=== PATIENT | female | born 1990 | race American Indian/Alaskan Native ===

== ENCOUNTER 2018-07-22 18:34 | Inpatient (IN) | payer OTHER, MEDICAID ==
[2018-07-22] MEDS ORDERED: XYLOCAINE 2% INFILTRATI ONE (20:52)
[2018-07-22] MEDS ORDERED: ZOFRAN IV PRN (20:52)
[2018-07-22] MEDS ORDERED: BRETHINE IVP PRN (20:52)
[2018-07-22] MEDS ORDERED: SUBLIMAZE IV PRN (20:52)
[2018-07-22] MEDS ORDERED: BRETHINE SUB-Q PRN (20:52)
[2018-07-22] MEDS ORDERED: MINERAL OIL PO PRN (20:52)
[2018-07-22] MEDS ORDERED: PITOCin/NS 20 UNIT/1000ML DRIP 20 UNITS/1,000 ML BAG IV SCH (21:00)
[2018-07-22] MEDS ORDERED: LACTATED RINGERS 1,000 ML IV SCH (21:00)
--- NOTE | 2018-07-22 21:05 | History and Physical Report ---
History of Present Illness Date of examination: 07/22/18 Chief complaint: regular painful contractions beginning @ 1300 today History of present illness: EDC Calculations by LMP: 07/21/2018 Past History : 1 Past Medical History: Reviewed history from 01/03/2017 and no changes required: Negative Past Medical History Past Surgical History: Reviewed history from 01/03/2017 and no changes required: Negative Past Surgical History Past Medical History Abnormal PAP: negative MAYANK Exposure: negative Infertility: negative Uterine Anomaly: negative Uterine Surgery (not C/S): negative Other Gynecologic Problems: negative Medical History Comments: negatinve Social Hx: Patient is single same partner x 10 years. debut age 15, x 5 Smoking History: Patient has never smoked. Infection History Hx of STD: chlamydia Partner hx. of genital herpes: no Rash, Viral, or Febrile illness since last LMP? no Varicella/Chicken Pox Status: Previous Disease Genetic History Congenital Heart Defect: Mom: no Dad: no Tj Disease: Mom: no Dad: no Thalassemia Mom: no Dad: no Neural Tube Defect Mom: no Dad: no Down's Syndrome Mom: no Dad: no Duncan-Sachs Mom: no Dad: no Sickle Cell Disease/Trait Mom: no Dad: no Hemophilia Mom: no Dad: no Muscular Dystrophy Mom: no Dad: no Cystic Fibrosis Mom: no Dad: no Ion Chorea Mom: no Dad: no Mental Retardation Mom: no Dad: no Fragile X Mom: no Dad: no Other Genetic/Chromosomal Disorder Mom: no Dad: no Child w/other defect Mom: no Dad: no Enviromental Exposures Xray Exposure: no Medication, drug, or alcohol use since LMP: no Chemical/Other Exposure: no Exposure to Cat Liter: no Hx of Parvovirus (Fifth Disease): no Occupational Exposure to Children: none Active Medications (reviewed today): None Current Allergies (reviewed today): No known allergies Past History Past Medical History: other (see HPI) Past Surgical History: other (see HPI) RACE STARTER History: other (see HPI) - Obstetrical History Expected Date of Delivery: 07/21/18 Actual Gestation: 40 Week(s) 2 Day(s) : 1 Para: 0 Hx # Term Pregnancies: 0 Number of Pregnancies: 0 Spontaneous Abortions: 0 Induced : 0 Number of Living Children: 0 Medications and Allergies Allergies Allergy/AdvReac Type Severity Reaction Status Date / Time No Known Allergies Allergy Verified 07/22/18 19:00 Review of Systems All systems: negative - Vital Signs Vital signs: Vital Signs Pulse Pulse Ox 87 96 07/22/18 18:57 07/22/18 18:57 Temp Pulse Resp BP Pulse Ox 98.6 F 76 20 127/85 98 07/22/18 19:15 07/22/18 20:41 07/22/18 19:15 07/22/18 20:41 07/22/18 19:22 - Physical Exam Breasts: Positive: normal Cardiovascular: Regular rate Lungs: Positive: Clear to auscultation, Normal air movement Abdomen: Positive: normal appearance, soft Genitourinary (Female): Positive: normal external genitalia (no evidence of HSV lesion, pt denies s/s outbreak), normal perenium Vulva: both: normal Vagina: Positive: normal moisture Uterus: Positive: normal size, normal contour Anus/Rectum: Positive: normal perianal skin Extremities: Positive: normal - Obstetrical FHR: auscultation normal Uterine Contraction Monitor Mode: External Cervical Dilatation: 3.5 Uterine Contraction Pattern: Regular Uterine Tone Measurement Phase: Contraction Uterine Contraction Intensity: Moderate Results Result Diagrams: 07/22/18 23:55 All other labs normal. Assessment and Plan 28y/o admitted for active labor. Pt changed her cervix from 2.5/90/-1 to 3.5/90/-1 after 1 hour of ambulating by same rn. GBS Neg. no evidence of HSV outbreak. Pt denies need for epidural at this time. Admission orders in EMR. Pelvis feels adequate for size of baby at this time. Dr. Lezama aware of admission. - Patient Problems (1) HSV-2 (herpes simplex virus 2) infection Current Visit: Yes Status: Acute (2) Active labor at term Current Visit: Yes Status: Acute (3) 40 weeks gestation of Current Visit: Yes Status: Acute
[2018-07-23 00:10] LABS: Hematocrit 40.4 % (30.3-42.9); Mean Corpuscular HGB Conc 35 % (30-34); Mean Corpuscular Volume 95 fl (79-97); Platelet Count 145 K/mm3 (140-440); Red Blood Count 4.25 M/mm3 (3.65-5.03); Red Cell Distribution Width 12.6 % (13.2-15.2)
--- NOTE | 2018-07-23 02:15 | Progress Note ---
Assessment and Plan Pt bolusing for epidural. AROM BBOW - moderate amount of clear fluid. Anticipate . - Patient Problems (1) HSV-2 (herpes simplex virus 2) infection Current Visit: Yes Status: Acute (2) Active labor at term Current Visit: Yes Status: Acute (3) 40 weeks gestation of Current Visit: Yes Status: Acute Subjective - Subjective Date of service: 07/23/18 Principal diagnosis: IUP @ 40+2, laboring Interval history: EDC Calculations by LMP: 07/21/2018 Past History : 1 Past Medical History: Reviewed history from 01/03/2017 and no changes required: Negative Past Medical History Past Surgical History: Reviewed history from 01/03/2017 and no changes required: Negative Past Surgical History Past Medical History Abnormal PAP: negative MAYANK Exposure: negative Infertility: negative Uterine Anomaly: negative Uterine Surgery (not C/S): negative Other Gynecologic Problems: negative Medical History Comments: negatinve Social Hx: Patient is single same partner x 10 years. debut age 15, x 5 Smoking History: Patient has never smoked. Infection History Hx of STD: chlamydia Partner hx. of genital herpes: no Rash, Viral, or Febrile illness since last LMP? no Varicella/Chicken Pox Status: Previous Disease Genetic History Congenital Heart Defect: Mom: no Dad: no Tj Disease: Mom: no Dad: no Thalassemia Mom: no Dad: no Neural Tube Defect Mom: no Dad: no Down's Syndrome Mom: no Dad: no Duncan-Sachs Mom: no Dad: no Sickle Cell Disease/Trait Mom: no Dad: no Hemophilia Mom: no Dad: no Muscular Dystrophy Mom: no Dad: no Cystic Fibrosis Mom: no Dad: no Ion Chorea Mom: no Dad: no Mental Retardation Mom: no Dad: no Fragile X Mom: no Dad: no Other Genetic/Chromosomal Disorder Mom: no Dad: no Child w/other defect Mom: no Dad: no Enviromental Exposures Xray Exposure: no Medication, drug, or alcohol use since LMP: no Chemical/Other Exposure: no Exposure to Cat Liter: no Hx of Parvovirus (Fifth Disease): no Occupational Exposure to Children: none Active Medications (reviewed today): None Current Allergies (reviewed today): No known allergies Patient reports: contractions Objective - Vital Signs Vital Signs: Vital Signs - 12hr 07/22/18 07/22/18 07/22/18 18:57 19:02 19:07 Temperature Pulse Rate 87 86 91 H Respiratory Rate Blood Pressure Blood Pressure [Left] O2 Sat by Pulse 96 98 99 Oximetry 07/22/18 07/22/18 07/22/18 19:12 19:15 19:17 Temperature 98.6 F Pulse Rate 87 90 88 Respiratory 20 Rate Blood Pressure 129/83 Blood Pressure 129/83 [Left] O2 Sat by Pulse 98 98 97 Oximetry 07/22/18 07/22/18 07/22/18 19:22 20:41 21:21 Temperature Pulse Rate 92 H 76 84 Respiratory Rate Blood Pressure 127/85 Blood Pressure [Left] O2 Sat by Pulse 98 100 Oximetry 07/22/18 07/22/18 07/22/18 21:26 21:31 21:36 Temperature Pulse Rate 78 83 89 Respiratory Rate Blood Pressure Blood Pressure [Left] O2 Sat by Pulse 99 99 99 Oximetry 07/22/18 07/22/18 07/22/18 21:41 21:46 21:51 Temperature Pulse Rate 77 84 82 Respiratory Rate Blood Pressure Blood Pressure [Left] O2 Sat by Pulse 98 98 100 Oximetry 07/22/18 07/22/18 07/22/18 21:56 22:01 22:06 Temperature Pulse Rate 87 89 85 Respiratory Rate Blood Pressure Blood Pressure [Left] O2 Sat by Pulse 99 98 98 Oximetry 07/22/18 07/22/18 07/22/18 22:11 22:16 22:31 Temperature Pulse Rate 81 85 83 Respiratory Rate Blood Pressure Blood Pressure [Left] O2 Sat by Pulse 99 99 99 Oximetry 07/22/18 07/22/18 07/22/18 22:36 22:41 22:46 Temperature Pulse Rate 84 78 77 Respiratory Rate Blood Pressure Blood Pressure [Left] O2 Sat by Pulse 98 99 99 Oximetry 07/22/18 07/22/18 07/22/18 22:51 22:56 23:00 Temperature Pulse Rate 76 81 65 Respiratory Rate Blood Pressure Blood Pressure [Left] O2 Sat by Pulse 99 100 92 Oximetry 07/22/18 07/22/18 07/22/18 23:01 23:06 23:11 Temperature Pulse Rate 77 81 77 Respiratory Rate Blood Pressure Blood Pressure [Left] O2 Sat by Pulse 100 100 100 Oximetry 07/22/18 07/22/18 07/22/18 23:16 23:33 23:38 Temperature 98.4 F Pulse Rate 70 84 90 Respiratory 18 Rate Blood Pressure Blood Pressure [Left] O2 Sat by Pulse 100 99 100 Oximetry 07/22/18 07/22/18 07/22/18 23:43 23:48 23:50 Temperature Pulse Rate 81 79 76 Respiratory Rate Blood Pressure Blood Pressure [Left] O2 Sat by Pulse 100 100 91 Oximetry 07/22/18 07/22/18 07/23/18 23:53 23:58 00:03 Temperature Pulse Rate 78 74 73 Respiratory Rate Blood Pressure Blood Pressure [Left] O2 Sat by Pulse 100 100 100 Oximetry 07/23/18 07/23/18 00:08 01:35 Temperature Pulse Rate 75 81 Respiratory Rate Blood Pressure 135/87 Blood Pressure [Left] O2 Sat by Pulse 100 Oximetry - Exam Breasts: normal Cardiovascular: Regular rate Lungs: Clear to auscultation, Normal air movement Abdomen: Present: normal appearance, soft Vulva: both: normal (no lesions) Uterus: Present: normal FHR: auscultation normal, category 1 Uterine Contraction Monitor Mode: External Cervical Dilatation: 6 Cervical Effacement Percentage: 100 station: -1 Uterine Contraction Frequency (min): 1.5-3 Uterine Contraction Duration: 60 Uterine Contraction Pattern: Regular Uterine Tone Measurement Phase: Contraction Uterine Contraction Intensity: Moderate Extremities: normal Deep Tendon Reflex Grade: Normal +2 - Labs Labs: Abnormal Labs 07/22/18 23:55 WBC 12.5 H MCH 33 H MCHC 35 H RDW 12.6 L Laboratory Results - last 24 hr 07/22/18 07/22/18 23:55 23:55 WBC 12.5 H RBC 4.25 Hgb 14.0 Hct 40.4 MCV 95 MCH 33 H MCHC 35 H RDW 12.6 L Plt Count 145 Blood Type A POSITIVE Antibody Screen Negative
[2018-07-23] MEDS ORDERED: NARCAN 2 MG/2 ML IV PRN (02:26)
[2018-07-23] MEDS ORDERED: fentaNYL-BUPIV 2 MCG/ML-0.125% 200 MCG/100 ML BAG EPIDURAL SCH (03:00)
--- NOTE | 2018-07-23 03:00 | Anesthesia Consultation ---
Anesthesia Consult and Med Hx Date of service: 07/23/18 - Airway Anesthetic Teeth Evaluation: Good ROM Head & Neck: Adequate Mental/Hyoid Distance: Adequate Mallampati Class: Class II Intubation Access Assessment: Probably Good - Pulmonary Exam CTA: Yes - Cardiac Exam Cardiac Exam: RRR - Pre-Operative Health Status ASA Pre-Surgery Classification: ASA2 Proposed Anesthetic Plan: Epidural - Pulmonary Hx Smoking: No Hx Asthma: No Hx Respiratory Symptoms: No - Cardiovascular System Hx Hypertension: No Hx Heart Attack/AMI: No - Central Nervous System Hx Neuromuscular Disorder: No Hx Seizures: No CVA: No - Endocrine Hx Renal Disease: No Hx Liver Disease: No Hx Insulin Dependent Diabetes: No Hx Non-Insulin Dependent Diabetes: No Hx Thyroid Disease: No - Hematic Hx Anemia: No - Additional Comments Anesthesia Medical History Comments: No hx anesthetic complications. No prior epidurals.
[2018-07-23] MEDS ORDERED: TUCKS PAD TP PRN (06:23)
[2018-07-23] MEDS ORDERED: LANSINOH TP PRN (06:23)
[2018-07-23] MEDS ORDERED: BENADRYL PO PRN (06:23)
[2018-07-23] MEDS ORDERED: MILK OF MAGNESIA PO PRN (06:23)
[2018-07-23] MEDS ORDERED: DULCOLAX PR PRN (06:23)
[2018-07-23] MEDS ORDERED: TYLENOL PO PRN (06:23)
[2018-07-23] MEDS ORDERED: PHENERGAN PO PRN (06:23)
--- NOTE | 2018-07-23 06:30 | Procedure Note ---
OB Delivery Note - Delivery Date of Delivery: 07/23/18 Circulation Representative: BERE OCASIO Estimated blood loss: 300cc - Vaginal Delivery presentation: vertex Delivery position: OA Intrapartum events: none Delivery induction: none Delivery augmentation: rupture of membranes Delivery monitor: external FHT, external uterine, internal FHT (for 2nd stage) Route of delivery: Delivery placenta: spontaneous Delivery cord: 3 umbilical vessels Episiotomy: none Delivery laceration: none Anesthesia: epidural Delivery comments: live born female over intact perineum Baby to mom's abdomen skin to skin Placenta and membrane delivered complete and intact, 3 vessel cord. Pitocin IVFs 8/9, EBL 300, Wgt 7-8 Mom and baby remain LDR stable. - Infant A at 1 minute: 8 at 5 minutes: 9 Infant Gender: Female (wgt 7-8)
[2018-07-23] MEDS ORDERED: SODIUM CHLORIDE FLUSH SYRINGE 10 ML IV NR (07:00)
[2018-07-23] MEDS: IBUPROFEN PO SCH ×2 (09:17→17:05)
[2018-07-23 20:16] LABS: Hematocrit 33.8 % (30.3-42.9); Hemoglobin 11.4 gm/dl (10.1-14.3)
[2018-07-24] MEDS ORDERED: M-M-R II VACCINE SUB-Q ONE (06:00)
[2018-07-24] MEDS ORDERED: BOOSTRIX IM ONE (06:00)
--- NOTE | 2018-07-24 07:31 | Discharge Summary ---
Providers - Providers Date of Admission: 07/22/18 21:19 Date of discharge: 07/24/18 (desires d/c home) Attending physician: SUKHI CRUZ Primary care physician: SUKHI CRUZ Hospitalization Reason for admission: Labor Condition: Good Pertinent studies: post delivery H&H 11.4/33.8 Procedures: Hospital course: uncomplicated and course Disposition: DC- TO HOME OR SELFCARE - Discharge Diagnoses (1) Normal spontaneous vaginal delivery Status: Acute Core Measure Documentation - Palliative Care Palliative Care/ Comfort Measures: Not Applicable - Core Measures Any of the following diagnoses?: none Exam - Constitutional Vitals: Temp Pulse Resp BP Pulse Ox 98.6 F 71 18 103/64 99 07/24/18 00:30 07/24/18 00:30 07/24/18 00:30 07/24/18 00:30 07/23/18 18:57 General appearance: Present: no acute distress, well-nourished - EENT Eyes: Present: PERRL ENT: hearing intact, clear oral mucosa - Neck Neck: Present: supple, normal ROM - Respiratory Respiratory effort: normal Respiratory: bilateral: CTA - Cardiovascular Heart Sounds: Present: S1 & S2. Absent: rub, click - Extremities Extremities: pulses symmetrical, No edema Peripheral Pulses: within normal limits - Abdominal General gastrointestinal: Present: soft, non-tender, non-distended, normal bowel sounds Female genitourinary: Present: normal - Integumentary Integumentary: Present: clear, warm, dry - Musculoskeletal Musculoskeletal: gait normal, strength equal bilaterally - Psychiatric Psychiatric: appropriate mood/affect, intact judgment & insight - Neurologic Neurologic: CNII-XII intact, moves all extremities - Additional findings Additional findings: Lochia scant, fundus firm Plan Activity: no restrictions Diet: regular Follow up with: SUKHI CRUZ MD [Primary Care Provider] - 6 Weeks (Congratulations! Please call [phone] to schedule your exam in 6 weeks. Call for any questions or concerns.) Prescriptions: Ibuprofen [Motrin 800 MG tab] 800 mg PO Q8HR PRN #30 tablet PRN Reason: Pain
[2018-07-24] MEDS: IBUPROFEN PO SCH (12:00)
[2018-07-24 17:28] VITALS: BP 119/70
== END 2018-07-24 17:30 | disposition home or self-care (01) | DRG 807 ==
LOC: TRG 18:34 → LD 21:19 → OB 07-23 08:30
PROVIDERS: ADMIT Obstetrics & Gynecology; ATTEND Obstetrics & Gynecology
PROC: 10E0XZZ Delivery of Products of Conception, External Approach (ICD-10-PCS; principal; 2018-07-23)
PROC: 10907ZC Drainage of Amniotic Fluid, Therapeutic from Products of Conception, Via Natural or Artificial Opening (ICD-10-PCS; 2018-07-23)
PROC: 3E0R3BZ Introduction of Anesthetic Agent into Spinal Canal, Percutaneous Approach (ICD-10-PCS; 2018-07-23)
PROC: 00HU33Z Insertion of Infusion Device into Spinal Canal, Percutaneous Approach (ICD-10-PCS; 2018-07-23)
DX: O98.32 Other infections with a predominantly sexual mode of transmission complicating childbirth (principal); Z37.0 Single live birth; Z3A.40 40 weeks gestation of pregnancy; A60.00 Herpesviral infection of urogenital system, unspecified
CPT/HCPCS: 36415; 85014; 85018; 85027; 86592; 86850; 86900; 86901; G0378; J2590; J3010; J7120

== ENCOUNTER 2019-06-14 22:13 | Inpatient (IN) | payer OTHER, MEDICAID ==
[2019-06-14] MEDS ORDERED: TERBUTALINE 1 MG/1 ML INJ SUB-Q PRN (23:27)
[2019-06-14] MEDS ORDERED: ePHEDrine SULFATE 50 MG/1 ML INJ IV PRN (23:27)
[2019-06-14] MEDS ORDERED: LIDOCAINE (2%) 20 MG/1 ML VIAL 20 ML MDV INFILTRATI ONE (23:27)
[2019-06-14] MEDS ORDERED: MINERAL OIL 30 ML ORAL LIQD PO PRN (23:27)
[2019-06-14] MEDS ORDERED: TERBUTALINE 1 MG/1 ML INJ IVP PRN (23:27)
[2019-06-14 23:42] LABS: Hematocrit 40.7 % (30.3-42.9); Hemoglobin 13.8 gm/dl (10.1-14.3); Mean Corpuscular HGB Conc 34 % (30-34); Mean Corpuscular Volume 97 fl (79-97); Platelet Count 153 K/mm3 (140-440); Red Blood Count 4.21 M/mm3 (3.65-5.03); Red Cell Distribution Width 13.3 % (13.2-15.2)
[2019-06-14] MEDS ORDERED: OXYTOCIN 20 UNIT/1000ML DRIP 20 UNITS/1,000 ML BAG IV SCH (23:45)
[2019-06-14] MEDS ORDERED: LACTATED RINGERS 1,000 ML IV SCH (23:45)
[2019-06-15] MEDS ORDERED: fentaNYL 100 MCG/2 ML INJ IV PRN (00:26)
--- NOTE | 2019-06-15 00:51 | History and Physical Report ---
History of Present Illness Date of examination: 06/15/19 Date of admission: 06/15/19 00:30 Chief complaint: Labor History of present illness: Past History : 2 Term Births: 1 Premature Births: 0 Living Children: 1 Para: 1 Mult. Births: 0 Prev : 0 Prev. attempt? 0 Aborta: 0 Elect. Ab: 0 Spont. Ab: 0 Ectopics: 0 # 1 Delivery date: 07/23/2018 Weeks Gestation: 40 Delivery type: Vaginal Anesthesia type: epidural Delivery location: [facility] Infant Sex: female weight: 7.50 Comments: none Past Medical History: Reviewed history from 01/03/2017 and no changes required: Negative Past Medical History Past Surgical History: Reviewed history from 01/03/2017 and no changes required: Negative Past Surgical History Past Medical History Abnormal PAP: negative MAYANK Exposure: negative Infertility: negative Uterine Anomaly: negative Uterine Surgery (not C/S): negative Other Gynecologic Problems: negative Family Hx: denies Social Hx: Patient is single same partner x 10 years. debut age 15, x 5 Smoking History: Patient has never smoked. Denies ETOH, alcohol, drugs Infection History Hx of STD: none HIV Risk Eval: low risk Hepatitis B Risk Eval: low risk Personal hx. of genital herpes: no Partner hx. of genital herpes: no Rash, Viral, or Febrile illness since last LMP? no Varicella/Chicken Pox Status: Immunized TB Risk: no Infection History Comments: HSV2 serum + only, no hx of outbreak Genetic History Congenital Heart Defect: Mom: no Dad: no Tj Disease: Mom: no Dad: no Thalassemia Mom: no Dad: no Neural Tube Defect Mom: no Dad: no Down's Syndrome Mom: no Dad: no Duncan-Sachs Mom: no Dad: no Sickle Cell Disease/Trait Mom: no Dad: no Hemophilia Mom: no Dad: no Muscular Dystrophy Mom: no Dad: no Cystic Fibrosis Mom: no Dad: no [place] Chorea Mom: no Dad: no Mental Retardation Mom: no Dad: no Fragile X Mom: no Dad: no Other Genetic/Chromosomal Disorder Mom: no Dad: no Child w/other defect Mom: no Dad: no Enviromental Exposures Enviromental Exposures Reviewed Xray Exposure: no Medication, drug, or alcohol use since LMP: no Chemical/Other Exposure: no Exposure to Cat Liter: no Hx of Parvovirus (Fifth Disease): no Occupational Exposure to Children: none Active Medications (reviewed today): PLUS 27-1 MG ORAL TABLET ( VIT-FE FUMARATE-FA) 1 po ORTHO MICRONOR 0.35 MG ORAL TABLET (NORETHINDRONE) 1 PO q DAY PLUS 27-1 MG ORAL TABLET ( VIT-FE FUMARATE-FA) 1 po Current Allergies (reviewed today): No known allergies Past History - Obstetrical History Expected Date of Delivery: 06/16/19 Actual Gestation: 39 Week(s) 6 Day(s) : 2 Medications and Allergies Allergies Allergy/AdvReac Type Severity Reaction Status Date / Time No Known Allergies Allergy Verified 07/22/18 19:00 Home Medications Medication Instructions Recorded Confirmed Last Taken Type No Known Home Medications [No 06/07/19 06/07/19 Unknown History Reported Home Medications] Active Meds: Active Medications Ephedrine Sulfate (Ephedrine Sulfate) 10 mg IV Q2M PRN PRN Reason: Hypotension Fentanyl (Sublimaze) 100 mcg IV ONCE PRN PRN Reason: Labor Pain Stop: 06/15/19 01:59 Last Admin: 06/15/19 00:34 Dose: 100 mcg Documented by: Oxytocin/Sodium Chloride (Pitocin/Ns 20 Unit/1000ml Drip) 20 units in 1,000 mls @ 125 mls/hr IV DIRECT CRISS Lactated Ringer's (Lactated Ringers) 1,000 mls @ 125 mls/hr IV DIRECT CRISS Last Admin: 06/15/19 00:38 Dose: 125 mls/hr Documented by: Mineral Oil (Mineral Oil) 30 ml PO QHS PRN PRN Reason: Constipation Terbutaline Sulfate (Brethine) 0.25 mg SUB-Q ONCE PRN PRN Reason: Hyperstimulation/Hypertonicity Terbutaline Sulfate (Brethine) 0.25 mg IVP ONCE PRN PRN Reason: Hyperstimulation/Hypertonicity Review of Systems All systems: negative - Vital Signs Vital signs: Vital Signs Pulse BP 78 122/77 06/14/19 22:59 06/14/19 22:59 Temp Pulse Resp BP Pulse Ox 98.1 F 78 122/77 06/14/19 23:00 06/14/19 22:59 06/14/19 22:59 - Physical Exam Breasts: Positive: deferred Cardiovascular: Regular rate Lungs: Positive: Normal air movement Abdomen: Positive: normal appearance. Negative: tenderness Genitourinary (Female): Positive: normal external genitalia, normal perenium Vulva: both: normal Uterus: Positive: enlarged. Negative: tender Anus/Rectum: Positive: normal perianal skin Extremities: Positive: normal. Negative: tenderness, edema - Obstetrical FHR: category 1 Uterine Contraction Monitor Mode: External Cervical Dilatation: 10 Cervical Effacement Percentage: 100 station: -2 Uterine Contraction Frequency (min): 3 Uterine Contraction Pattern: Regular Results Result Diagrams: 06/14/19 23:20 Abnormal lab results 06/14/19 Range/Units 23:20 MCH 33 H (28-32) pg All other labs normal. Assessment and Plan Anticipate vaginal delivery - Patient Problems (1) 39 weeks gestation of Current Visit: Yes Status: Acute (2) Active labor at term Current Visit: No Status: Acute (3) HSV-2 (herpes simplex virus 2) infection Current Visit: No Status: Acute Plan to address problem: She denies prodromal
[2019-06-15] MEDS ORDERED: BUTORPHANOL 2 MG/1 ML INJ IV PRN (00:56)
[2019-06-15] MEDS ORDERED: NALOXONE 2 MG/2 ML INJ IV PRN (01:32)
[2019-06-15] MEDS ORDERED: ePHEDrine SULFATE 50 MG/1 ML INJ IV PRN (01:32)
[2019-06-15] MEDS ORDERED: fentaNYL-BUPIV 2 MCG/ML-0.125% 200 MCG/100 ML BAG EPIDURAL SCH (02:00)
--- NOTE | 2019-06-15 02:17 | Anesthesia Consultation ---
Anesthesia Consult and Med Hx Date of service: 06/15/19 - Airway Anesthetic Teeth Evaluation: Good ROM Head & Neck: Adequate Mental/Hyoid Distance: Adequate Mallampati Class: Class II Intubation Access Assessment: Good - Pulmonary Exam CTA: Yes - Cardiac Exam Cardiac Exam: RRR - Pre-Operative Health Status ASA Pre-Surgery Classification: ASA2 Proposed Anesthetic Plan: Epidural - Pulmonary Hx Smoking: No Hx Asthma: No Hx Respiratory Symptoms: No SOB: No COPD: No Home Oxygen Therapy: No Hx Pneumonia: No Hx Sleep Apnea: No - Cardiovascular System Hx Hypertension: No Hx Coronary Artery Disease: No Hx Heart Attack/AMI: No Hx Angina: No Hx Percutaneous Transluminal Coronary Angioplasty (PTCA): No Hx Cardia Arrhythmia: No Hx Pacemaker: No Hx Internal Defibrillator: No Hx Valvular Heart Disease: No Hx Heart Murmur: No Hx Peripheral Vascular Disease: No - Central Nervous System Hx Neuromuscular Disorder: No Hx Seizures: No CVA: No Hx Psychiatric Problems: No - Gastrointestinal Hx Ulcer: No Hx Gastroesophageal Reflux Disease: Yes - Endocrine Hx Renal Disease: No Hx Cirrhosis: No Hx Liver Disease: No Hx Insulin Dependent Diabetes: No Hx Non-Insulin Dependent Diabetes: No Hx Thyroid Disease: No Hx Hypothyroidism: No Hx Hyperthyroidism: No - Hematic Hx Anemia: No Hx Sickle Cell Disease: No - Other Systems Hx Alcohol Use: No Hx Substance Use: No Hx Cancer: No Hx Obesity: Yes (BMI 36.6)
--- NOTE | 2019-06-15 02:31 | Procedure Note ---
OB Delivery Note - Delivery Date of Delivery: 06/15/19 Surgeon: ZENY BREWSTER Estimated blood loss: 200cc - Vaginal Delivery presentation: vertex Delivery position: OA Intrapartum events: extend. bradycardia Delivery induction: none Delivery augmentation: rupture of membranes Delivery monitor: external FHT, external uterine, internal FHT Route of delivery: Delivery placenta: spontaneous (intact) Episiotomy: none Delivery laceration: none Anesthesia: epidural - A at 1 minute: 8 at 5 minutes: 9 Infant Gender: Female (7lbs 14oz)
[2019-06-15] MEDS ORDERED: LANOLIN/ZINC/DIMETHICONE (LANSINOH) 7 GM TP PRN (04:28)
[2019-06-15] MEDS ORDERED: ACETAMINOPHEN 325 MG TAB PO PRN (04:28)
[2019-06-15] MEDS ORDERED: WITCH HAZEL/ GLYCERIN PAD TP PRN (04:28)
[2019-06-15] MEDS ORDERED: MAGNESIUM HYDROXIDE (MOM) ORAL LIQD UDC PO PRN (04:28)
[2019-06-15] MEDS ORDERED: miSOPROStol 100 MCG TAB PR PRN (04:28)
[2019-06-15] MEDS ORDERED: CARBOPROST TROMETHAMINE 250 MCG/1 ML INJ IM PRN (04:28)
[2019-06-15] MEDS ORDERED: diphenhydrAMINE 25 MG CAP PO PRN (04:28)
[2019-06-15] MEDS ORDERED: PROMETHAZINE 25 MG RECT SUPP PR PRN (04:28)
[2019-06-15] MEDS ORDERED: METHYLERGONOVINE MALEATE 0.2 MG/ML VIAL IM PRN (04:28)
[2019-06-15] MEDS ORDERED: ONDANSETRON 4 MG/2 ML INJ IV PRN (04:28)
[2019-06-15] MEDS ORDERED: PROMETHAZINE 25 MG TAB PO PRN (04:28)
[2019-06-15] MEDS: IBUPROFEN 600 MG TAB PO SCH (05:35)
--- NOTE | 2019-06-15 07:32 | Progress Note ---
Assessment and Plan A: 29 y.o s/p on 06/15/2019, pain controlled, + flatus, voiding without difficulty P: Ambulation encouraged Continue with care BC plan: Paragaurd IUD Subjective - Subjective Date of service: 06/15/19 (Pt s/p ) Patient reports: appetite normal, voiding normally, pain well controlled [place]: doing well Objective - Vital Signs Latest vital signs: Vital Signs Temp Pulse Resp BP BP Pulse Ox 06/15/19 04:35 99.3 F 72 18 106/51 97 06/15/19 03:22 71 120/57 06/15/19 03:07 87 130/63 06/15/19 02:52 83 117/64 06/15/19 02:37 90 99/58 06/15/19 02:36 85 114/54 06/15/19 02:17 76 99/51 97 06/15/19 02:16 100 H 87 06/15/19 02:12 95 H 96/51 98 06/15/19 02:07 86 97 06/15/19 02:02 76 105/54 06/15/19 02:01 77 96 06/15/19 01:59 82 L 06/15/19 01:39 101 H 82 L 06/15/19 01:37 72 100 06/15/19 01:33 38 L 84 06/15/19 01:32 88 92 06/15/19 01:28 71 109/58 06/15/19 01:27 69 99 06/15/19 01:22 80 98 06/15/19 01:20 69 89 06/15/19 01:17 83 93 06/15/19 01:13 77 88 06/15/19 01:12 74 91 06/15/19 01:11 71 112/65 06/15/19 01:07 66 94 06/15/19 01:06 65 94 06/15/19 01:02 73 95 06/15/19 01:01 73 94 06/15/19 00:57 72 97 06/15/19 00:55 79 89 06/15/19 00:52 64 126/70 97 06/14/19 23:00 98.1 F 06/14/19 22:59 78 122/77 Intake and Output 06/14/19 06/15/19 06/15/19 22:59 06:59 14:59 Output Total 600 Balance -600 Output: Urine 600 Void 600 Other: Total, Output Amount 600 Weight 200 lb 200 lb Estimated Blood Loss 200 - Exam Breasts: Present: deferred Abdomen: Present: normal appearance, soft Vulva: both: normal Uterus: Present: firm, fundal height above umbilicus Extremities: Present: normal Deep Tendon Reflex Grade: Normal +2 - Labs Labs: Abnormal lab results 06/14/19 Range/Units 23:20 MCH 33 H (28-32) pg
[2019-06-15] MEDS ORDERED: FLU VACC QUAD 2019-20 (3 YR UP)/PF 60 MCG/0.5 ML SYRINGE IM ONE (12:00)
[2019-06-15 16:02] LABS: Hematocrit 40.6 % (30.3-42.9); Hemoglobin 13.4 gm/dl (10.1-14.3)
[2019-06-16] MEDS: IBUPROFEN 600 MG TAB PO SCH (00:27)
[2019-06-16] MEDS ORDERED: TETANUS,DIPH,PERTUSS(ACELL) VACCINE 0.5 ML SYRINGE IM ONE (06:00)
--- NOTE | 2019-06-16 07:54 | Discharge Summary ---
Providers - Providers Date of Admission: 06/15/19 00:30 Date of discharge: 06/16/19 (desires d/c home) Attending physician: ZENY BREWSTER 06/15/19 04:28 Consult to Routing Equipment Tender [CONS] Routine Reason For Exam: assistance with , SNS Primary care physician: ZENY BREWSTER Hospitalization Reason for admission: Labor Condition: Good Pertinent studies: H&H 13.4/40.6 Procedures: Hospital course: uncomplicated and course Disposition: DC-01 TO HOME OR SELFCARE - Discharge Diagnoses (1) Normal spontaneous vaginal delivery Status: Acute Core Measure Documentation - Palliative Care Palliative Care/ Comfort Measures: Not Applicable - Core Measures Any of the following diagnoses?: none Exam - Constitutional Vitals: Temp Pulse Resp BP Pulse Ox 98.3 F 74 20 98/53 98 06/16/19 02:03 06/16/19 02:03 06/16/19 02:03 06/16/19 02:03 06/16/19 02:03 General appearance: Present: no acute distress, well-nourished - EENT Eyes: Present: PERRL ENT: hearing intact, clear oral mucosa - Neck Neck: Present: supple, normal ROM - Respiratory Respiratory effort: normal Respiratory: bilateral: CTA - Cardiovascular Rhythm: regular Heart Sounds: Absent: rub, click - Abdominal General gastrointestinal: Present: soft, non-tender - Integumentary Integumentary: Present: clear, warm, dry - Musculoskeletal Musculoskeletal: strength equal bilaterally - Psychiatric Psychiatric: appropriate mood/affect - Neurologic Neurologic: CNII-XII intact, moves all extremities, gait normal - Additional findings Additional findings: , lochia scant, fundus firm Plan Activity: no restrictions Diet: regular Follow up with: ZENY BREWSTER MD [Primary Care Provider] - 6 Weeks (Congratulations! Please call [phone] to schedule your visit in 6 weeks. Call for any questions or complaints.)
[2019-06-16 09:40] VITALS: BP 102/65
== END 2019-06-16 15:29 | disposition home or self-care (01) | DRG 806 ==
LOC: TRG 22:13 → LD 06-15 00:30 → OB 06-15 04:28
PROVIDERS: ADMIT Obstetrics & Gynecology; ATTEND Obstetrics & Gynecology
PROC: 10E0XZZ Delivery of Products of Conception, External Approach (ICD-10-PCS; principal; 2019-06-15)
PROC: 3E0R3BZ Introduction of Anesthetic Agent into Spinal Canal, Percutaneous Approach (ICD-10-PCS; 2019-06-15)
PROC: 00HU33Z Insertion of Infusion Device into Spinal Canal, Percutaneous Approach (ICD-10-PCS; 2019-06-15)
PROC: 3E0234Z Introduction of Serum, Toxoid and Vaccine into Muscle, Percutaneous Approach (ICD-10-PCS; 2019-06-16)
DX: O76 Abnormality in fetal heart rate and rhythm complicating labor and delivery (principal); O98.52 Other viral diseases complicating childbirth; Z37.0 Single live birth; O99.62 Diseases of the digestive system complicating childbirth; K21.9 Gastro-esophageal reflux disease without esophagitis; O99.214 Obesity complicating childbirth; B00.9 Herpesviral infection, unspecified; Z3A.39 39 weeks gestation of pregnancy; Z23 Encounter for immunization
CPT/HCPCS: 36415; 85014; 85018; 85027; 86592; 86850; 86900; 86901; 90686; G0378; A6250; J2590; J3010; J7120

== ENCOUNTER 2019-06-17 13:17 | Emergency (ER) | payer OTHER, MEDICAID ==
[2019-06-17] MEDS ORDERED: SODIUM CHLORIDE 0.9% 1000 ML 1,000 ML IV ONE ×2 (14:32→14:33)
[2019-06-17] MEDS ORDERED: MORPHINE 4 MG/1 ML INJ IV ONE (14:33)
[2019-06-17] MEDS ORDERED: ONDANSETRON 4 MG/2 ML INJ IV ONE (14:33)
--- NOTE | 2019-06-17 14:36 | Emergency Department Report ---
ED Headache HPI - General Chief Complaint: Headache Stated Complaint: SPINAL HEADACHE DUE TO GIVIN Time Seen by Provider: 06/17/19 14:29 - History of Present Illness Initial Comments: Patient is 29 years old female with no significant past medical history. Patient is status post normal spontaneous vaginal delivery that required epidural anesthesia 2 days ago. Patient presented to the ER complaining of global headache started last night, throbbing in nature. Patient denies any neck pain, fever or chills. No weakness numbness or tingling sensation. Timing/Duration: 24 hours Quality: moderate Head Injury Location: global Recent Head Trauma: no recent headache/trauma Associated Symptoms: denies symptoms Allergies/Adverse Reactions: Allergies No Known Allergies Allergy (Verified 07/22/18 19:00) Home Medications: Ambulatory Orders Daily Combo Pack 60 mg PO DAILY 06/15/19 ED Review of Systems ROS: Stated complaint: SPINAL HEADACHE DUE TO GIVIN Other details as noted in HPI Comment: All other systems reviewed and negative Constitutional: denies: chills, fever Respiratory: denies: cough, shortness of breath Cardiovascular: denies: chest pain, palpitations, dyspnea on exertion Gastrointestinal: nausea. denies: abdominal pain Musculoskeletal: denies: back pain Neurological: headache. denies: weakness, numbness, paresthesias, confusion, abnormal gait ED Past Medical Hx - Past Medical History Hx Hypertension: No Hx Heart Attack/AMI: No Hx Congestive Heart Failure: No Hx Diabetes: No Hx Deep Vein Thrombosis: No Hx Liver Disease: No Hx Renal Disease: No Hx Sickle Cell Disease: No Hx Seizures: No Hx Asthma: No Hx COPD: No Hx HIV: No - Surgical History Hx Pacemaker: No Hx Internal Defibrillator: No - Social History Smoking Status: Never Smoker Substance Use Type: None - Medications Home Medications: Home Medications Medication Instructions Recorded Confirmed Last Taken Type Daily Combo Pack 60 mg PO DAILY 06/15/19 06/15/19 06/14/19 History ED Physical Exam - General Limitations: No Limitations General appearance: alert, in no apparent distress - Head Head exam: Present: atraumatic, normocephalic, normal inspection - Eye Eye exam: Present: normal appearance - ENT ENT exam: Present: normal exam, normal orophraynx, mucous membranes moist - Neck Neck exam: Present: normal inspection, full ROM. Absent: tenderness, meningismus, lymphadenopathy, thyromegaly - Respiratory Respiratory exam: Present: normal lung sounds bilaterally - Cardiovascular Cardiovascular Exam: Present: regular rate, normal rhythm, normal heart sounds - GI/Abdominal GI/Abdominal exam: Present: soft, normal bowel sounds. Absent: distended, tenderness, guarding, rebound, rigid, organomegaly, mass, bruit, pulsatile mass, hernia - Extremities Exam Extremities exam: Present: normal inspection, full ROM, normal capillary refill. Absent: pedal edema, calf tenderness - Back Exam Back exam: Present: normal inspection, full ROM. Absent: CVA tenderness (R), CVA tenderness (L) - Neurological Exam Neurological exam: Present: alert, oriented X3, CN II-XII intact, normal gait, reflexes normal - Psychiatric Psychiatric exam: Present: normal mood - Skin Skin exam: Present: warm, intact, normal color ED Course Vital Signs 06/17/19 06/17/19 06/17/19 13:37 14:27 14:30 Temperature 98.1 F Pulse Rate 76 63 Respiratory 18 12 Rate Blood Pressure 111/93 106/67 Blood Pressure [Right] O2 Sat by Pulse 100 99 99 Oximetry 06/17/19 06/17/19 06/17/19 14:32 14:46 15:00 Temperature 98.4 F Pulse Rate 67 65 74 Respiratory 14 13 20 Rate Blood Pressure 106/67 106/67 Blood Pressure 106/67 [Right] O2 Sat by Pulse 99 99 99 Oximetry 06/17/19 06/17/19 06/17/19 15:16 15:30 15:46 Temperature Pulse Rate 78 71 64 Respiratory 14 12 13 Rate Blood Pressure 106/67 106/67 106/67 Blood Pressure [Right] O2 Sat by Pulse 99 98 98 Oximetry 06/17/19 06/17/19 06/17/19 16:00 16:16 16:30 Temperature Pulse Rate 67 74 72 Respiratory 14 12 16 Rate Blood Pressure 102/65 102/65 102/65 Blood Pressure [Right] O2 Sat by Pulse 99 98 99 Oximetry 06/17/19 06/17/19 06/17/19 16:46 17:00 17:16 Temperature Pulse Rate 74 76 77 Respiratory 16 14 13 Rate Blood Pressure 102/65 104/65 104/65 Blood Pressure [Right] O2 Sat by Pulse 99 98 98 Oximetry 06/17/19 06/17/19 17:30 17:46 Temperature Pulse Rate 108 H 95 H Respiratory 22 13 Rate Blood Pressure 104/65 104/65 Blood Pressure [Right] O2 Sat by Pulse 99 Oximetry ED Medical Decision Making - Lab Data Result diagrams: 06/17/19 14:39 06/17/19 14:39 - Medical Decision Making Patient is 29 years old female with no significant past medical history. Patient is status post normal spontaneous vaginal delivery that required epidural anesthesia 2 days ago. Patient presented to the ER complaining of global headache started last night, throbbing in nature. Patient denies any neck pain, fever or chills. No weakness numbness or tingling sensation. Patient received 2 L of normal saline, morphine and Zofran. Patient stated that she is feeling much better. Patient advised to return to the ER if symptoms are not improved for blood patching. Patient advised to follow up with her primary care physician in the next 2-3 days and to return to the ER if symptoms are not improved. Critical care attestation.: If time is entered above; I have spent that time in minutes in the direct care of this critically ill patient, excluding procedure time. ED Disposition Clinical Impression: Headache, (normal spontaneous vaginal delivery) Disposition: [id number] TO HOME OR SELFCARE Is pt being admited?: No Condition: Stable Instructions: Acute Headache (ED) Referrals: PRIMARY CARE, [Primary Care Provider] - 3-5 Days
[2019-06-17 15:25] LABS: Alanine Aminotransferase 17 units/L (7-56); Albumin 3.4 g/dL (3.9-5); BUN/Creatinine Ratio 16; Blood Urea Nitrogen 11 mg/dL (7-17); Calcium 8.9 mg/dL (8.4-10.2); Hemolysis Index 9
[2019-06-17 15:29] LABS: Basophils % (Auto) 0.1 % (0.0-1.8); Eosinophils % (Auto) 0.2 % (0.0-4.3); Hematocrit 41.8 % (30.3-42.9); Hemoglobin 14.3 gm/dl (10.1-14.3); Lymphocytes # (Auto) 1.1 K/mm3 (1.2-5.4); Lymphocytes % (Auto) 10.9 % (13.4-35.0); Mean Corpuscular HGB Conc 34 % (30-34); Mean Corpuscular Volume 96 fl (79-97); Monocytes # (Auto) 0.4 K/mm3 (0.0-0.8); Monocytes % (Auto) 3.6 % (0.0-7.3); Platelet Count 158 K/mm3 (140-440); Red Blood Count 4.34 M/mm3 (3.65-5.03); Red Cell Distribution Width 13.4 % (13.2-15.2)
[2019-06-17] MEDS ORDERED: ACETAMINOPHEN 500 MG TAB ONE (15:31)
[2019-06-17 17:49] VITALS: BP 104/65
== END 2019-06-17 18:28 | disposition home or self-care (01) ==
LOC: ED 13:17
DX: O89.4 Spinal and epidural anesthesia-induced headache during the puerperium (principal); O99.89 Other specified diseases and conditions complicating pregnancy, childbirth and the puerperium; R11.2 Nausea with vomiting, unspecified
CPT/HCPCS: 36415; 80053; 85025; 96361; 96374; 96375; 99283; J2270; J2405; J7030